=== PATIENT | female | born 1975 | race Two or more races ===

== ENCOUNTER 2023-11-04 14:00 | Inpatient (IN) | payer OTHER ==
[2023-11-04 14:15] VITALS: BMI 26.5
[2023-11-04 15:52] LABS: INR 1.06 (0.83-1.09); PROTHROMBIN TIME (PATIENT) 12.3 SEC (9.7-13.0)
[2023-11-04 15:54] LABS: ACTIVATED PTT 31.4 SECONDS (25.2-36.5); HEMATOCRIT 27.7 % (32.4-45.2); MCH 22.9 pg (25.7-33.7); MEAN CELL VOLUME 79.2 fl (80-96); MEAN PLT VOLUME 9.8 fl (7.5-11.1); PLATELET COUNT 300 10^3/uL (134-434); RDW 19.2 % (11.6-15.6); WHITE BLOOD COUNT 3.2 K/mm3 (4.0-10.0)
[2023-11-04 16:06] LABS: POTASSIUM 4.2 mmol/L (3.5-5.1)
[2023-11-04 16:08] LABS: ALBUMIN 3.5 g/dl (3.4-5.0); BLOOD UREA NITROGEN 14.2 mg/dL (7-18); CALCIUM 8.6 mg/dL (8.5-10.1)
[2023-11-04 16:11] LABS: CREATININE 0.8 mg/dL (0.55-1.3)
[2023-11-04 16:13] LABS: BILIRUBIN,TOTAL 0.2 mg/dL (0.2-1); TOT PROT 6.3 g/dl (6.4-8.2)
[2023-11-04 16:49] LABS: ANISOCYTOSIS 3+; MACROCYTOSIS 0; OVALOCYTE 1+; TARGET CELLS 1+
[2023-11-05] MEDS ORDERED: ACETAMINOPHEN INJECTION 100 ML IVPB ONE (06:59)
[2023-11-05] MEDS ORDERED: KETOROLAC TROMETHAMINE 30 MG/1 ML VIAL ONE ×2 (07:08→07:35)
[2023-11-05] MEDS ORDERED: DEXAMETHASONE SOD PHOSPHATE 4 MG/1 ML VIAL ONE (07:08)
[2023-11-05] MEDS ORDERED: ONDANSETRON 4 MG/2 ML VIAL ONE ×2 (07:08→09:46)
[2023-11-05] MEDS ORDERED: LIDOCAINE HCL/PF 2% SDV 5ML VIAL ONE (07:08)
[2023-11-05] MEDS ORDERED: ceFAZolin SODIUM 1 GM VIAL ONE (07:08)
[2023-11-05] MEDS ORDERED: ROCURONIUM BROMIDE 50 MG/5 ML SYRINGE ONE ×2 (07:08→08:14)
[2023-11-05] MEDS ORDERED: SODIUM CHLORIDE 0.9% P/F 10 ML VIAL IJ ONE (07:08)
[2023-11-05 07:44] LABS: HEMATOCRIT 31.8 % (32.4-45.2); HEMOGLOBIN 9.9 GM/dL (10.7-15.3); MCH 24.5 pg (25.7-33.7); MEAN CELL VOLUME 79.1 fl (80-96); MEAN PLT VOLUME 9.8 fl (7.5-11.1); PLATELET COUNT 269 10^3/uL (134-434); RBC 4.02 M/mm3 (3.60-5.2); RDW 17.8 % (11.6-15.6); WHITE BLOOD COUNT 3.6 K/mm3 (4.0-10.0)
[2023-11-05] MEDS ORDERED: GLYCOPYRROLATE 0.2 MG/1 ML VIAL ONE (07:44)
[2023-11-05] MEDS ORDERED: MIDAZOLAM HCL 2 MG/2 ML SINGLE DOSE VIAL ONE (07:44)
[2023-11-05] MEDS ORDERED: FENTANYL CITRATE/PF 50 MCG/ML VIAL ONE (07:45)
[2023-11-05] MEDS ORDERED: PROPOFOL 20 ML ONE ×2 (07:45→09:27)
[2023-11-05] MEDS ORDERED: TRANEXAMIC ACID 1000 MG/10 ML VIAL ONE ×2 (07:49→08:29)
[2023-11-05] MEDS ORDERED: BUPIVACAINE HCL/PF 0.5% (5MG/ML) 10 ML VIAL ONE (07:58)
[2023-11-05] MEDS: ceFAZolin SODIUM 1 GM VIAL IVPB ONE ×2 (08:00)
[2023-11-05] MEDS ORDERED: KETAMINE HCL 200 MG/20 ML VIAL ONE (08:04)
[2023-11-05] MEDS ORDERED: MAGNESIUM SULF 50% (8.12 MEQ/2 ML-1 GM VIAL) ONE (08:04)
[2023-11-05] MEDS ORDERED: HYDROmorphone HCl 2 MG/ML VIAL ONE (08:05)
[2023-11-05] MEDS: BUPIVACAINE HCL/PF 0.5% (5MG/ML) 10 ML VIAL IJ ONE ×2 (08:11→09:40)
[2023-11-05] MEDS ORDERED: ONDANSETRON 4 MG/2 ML VIAL IVPUSH PRN ×2 (08:18→10:17)
[2023-11-05] MEDS ORDERED: SUGAMMADEX SODIUM 200 MG/2 ML VIAL ONE (08:53)
[2023-11-05] MEDS: FLU VACCINE (FLULAVAL) PF 60 MCG/0.5 ML SYRINGE 2023-2024 IM ONE (10:00)
[2023-11-05] MEDS ORDERED: HYDROmorphone *PCA* 10MG/50ML DISP.SYRIN ONE (10:27)
[2023-11-05] MEDS: HYDROmorphone *PCA* 10MG/50ML DISP.SYRIN PCA SCH ×2 (10:53→20:26)
[2023-11-05] MEDS: KETOROLAC TROMETHAMINE 30 MG/1 ML VIAL IVPUSH ONE (10:55)
[2023-11-05] MEDS: LACTATED RINGERS SOLUTION 1,000 ML IV SCH ×2 (12:15→20:35)
[2023-11-05] MEDS: IBUPROFEN 800 MG/8 ML IJ IVPB SCH (14:32)
[2023-11-05 15:28] LABS: HEMATOCRIT 33.5 % (32.4-45.2); HEMOGLOBIN 10.4 GM/dL (10.7-15.3); MCH 24.2 pg (25.7-33.7); MCHC 30.9 g/dl (32.0-36.0); MEAN CELL VOLUME 78.4 fl (80-96); MEAN PLT VOLUME 9.6 fl (7.5-11.1); PLATELET COUNT 246 10^3/uL (134-434); RBC 4.27 M/mm3 (3.60-5.2); RDW 17.7 % (11.6-15.6); WHITE BLOOD COUNT 13.3 K/mm3 (4.0-10.0)
[2023-11-05 15:47] LABS: POTASSIUM 3.7 mmol/L (3.5-5.1)
[2023-11-05 15:48] LABS: CALCIUM 8.3 mg/dL (8.5-10.1)
[2023-11-05 15:49] LABS: BLOOD UREA NITROGEN 13.6 mg/dL (7-18)
[2023-11-05 15:52] LABS: CREATININE 0.8 mg/dL (0.55-1.3)
[2023-11-05] MEDS: ACETAMINOPHEN 1000 MG/100 ML BAG IVPB SCH (16:09)
[2023-11-05] MEDS ORDERED: CEFAZOLIN SODIUM 2 GM in DEXTROSE 5%-WATER 100 ML IVPB SCH (18:00)
[2023-11-05] MEDS: CEFAZOLIN SODIUM 2 GM in DEXTROSE 5%-WATER 100 ML IVPB SCH (18:48)
[2023-11-05] MEDS: CEFAZOLIN SODIUM 2 GM in DEXTROSE 5%-WATER 100 ML IVPB ONE (20:25)
[2023-11-05] MEDS: PHENAZOPYRIDINE HCL 100 MG TABLET (FP) PO ONE (20:26)
[2023-11-05] MEDS: ACETAMINOPHEN 1000 MG/100 ML BAG IVPB ONE (20:26)
[2023-11-05] MEDS: ONDANSETRON 4 MG/2 ML VIAL IVPB PRN (20:38)
[2023-11-05] MEDS: SERTRALINE HCL 25 MG TABLET (FP) PO SCH (21:33)
[2023-11-05] MEDS: ZOLPIDEM TARTRATE 5 MG TABLET PO PRN (22:43)
[2023-11-06 07:27] LABS: HEMOGLOBIN 9.5 GM/dL (10.7-15.3); MCHC 31.7 g/dl (32.0-36.0); MEAN CELL VOLUME 78.7 fl (80-96); MEAN PLT VOLUME 9.5 fl (7.5-11.1); PLATELET COUNT 211 10^3/uL (134-434); RBC 3.81 M/mm3 (3.60-5.2); RDW 17.9 % (11.6-15.6); WHITE BLOOD COUNT 10.4 K/mm3 (4.0-10.0)
[2023-11-06 07:49] LABS: CALCIUM 8.2 mg/dL (8.5-10.1)
[2023-11-06 07:50] LABS: BLOOD UREA NITROGEN 12.6 mg/dL (7-18)
[2023-11-06 07:52] LABS: CREATININE 0.9 mg/dL (0.55-1.3)
[2023-11-06] MEDS ORDERED: MULTIVITAMIN PO SCH (10:00)
[2023-11-06] MEDS ORDERED: SERTRALINE HCL 50 MG TABLET (FP) PO SCH ×2 (10:00)
[2023-11-06] MEDS ORDERED: PATIENT'S OWN MEDICATION (NON-FORMULARY) (Multivitamin [Daily Vite] 1 EACH Tablet) PO SCH (10:00)
[2023-11-06] MEDS ORDERED: PRENATAL VITAMINS W/ FOLIC ACID TABLET (FP) PO SCH (10:00)
[2023-11-06] MEDS ORDERED: IBUPROFEN 600 MG TABLET (FP) PO ONE (19:12)
[2023-11-06] MEDS: ACETAMINOPHEN 325 MG TABLET (FP) PO PRN (20:51)
[2023-11-06] MEDS: PRENATAL VITAMINS W/ FOLIC ACID TABLET (FP) PO SCH (22:38)
[2023-11-07] MEDS: IBUPROFEN 400 MG TABLET (FP) PO PRN (06:28)
[2023-11-07 10:35] VITALS: BP 116/77; PULSE 81; RESP 16; TEMP 98.6
[2023-11-07] MEDS: IBUPROFEN 400 MG TABLET (FP) PO ONE (11:08)
== END 2023-11-07 11:05 | disposition home or self-care (01) | DRG 519 ==
LOC: JER 14:00 → JERBED 15:37 → J3W 16:53
PROVIDERS: ADMIT Obstetrics & Gynecology; ATTEND Obstetrics & Gynecology
PROC: 0UT70ZZ Resection of Bilateral Fallopian Tubes, Open Approach (ICD-10-PCS; 2023-11-05)
PROC: 30233N1 Transfusion of Nonautologous Red Blood Cells into Peripheral Vein, Percutaneous Approach (ICD-10-PCS; 2023-11-05)
PROC: 0UT90ZZ Resection of Uterus, Open Approach (ICD-10-PCS; principal; 2023-11-05 07:30)
DX: D25.1 Intramural leiomyoma of uterus (principal); N92.0 Excessive and frequent menstruation with regular cycle; N80.03 Adenomyosis of the uterus; D64.9 Anemia, unspecified
CPT/HCPCS: 0241U-QW; 36415; 36430; 80048; 80053; 84703; 85025; 85027; 85610; 85730; 86850; 86900; 86901; 86922; 88302-TC; 88305-TC; 88307-TC; 93005; 93010; 94760; 99285-25; J0131; P9038; P9058